=== PATIENT | male | born 1985 | race Hispanic/Latino ===

== ENCOUNTER 2022-11-26 18:11 | Emergency (ER) | payer OTHER ==
[~2022-11-26] VITALS: Ht 157.5 cm; Wt 83.0 kg
[2022-11-26] MEDS ORDERED: KEFLEX500 MG PO (19:08)
[2022-11-26 19:30] VITALS: BP 142/90
== END 2022-11-26 19:30 | disposition home or self-care (01) | DRG 605 ==
LOC: ED 18:11
DX: S91.332A Puncture wound without foreign body, left foot, initial encounter (principal); W45.8XXA Other foreign body or object entering through skin, initial encounter